=== PATIENT | male | born 1980 | race Caucasian/White ===

== ENCOUNTER 2016-09-18 10:24 | Emergency (ER) | payer OTHER | END 2016-09-18 11:45 | disposition home or self-care (01) | LOC: ER1 10:24 | DX: T22.211A Burn of second degree of right forearm, initial encounter (principal); I10 Essential (primary) hypertension; M54.9 Dorsalgia, unspecified; G89.29 Other chronic pain; Z88.5 Allergy status to narcotic agent; Z88.6 Allergy status to analgesic agent; Z79.899 Other long term (current) drug therapy; F17.210 Nicotine dependence, cigarettes, uncomplicated; X19.XXXA Contact with other heat and hot substances, initial encounter; Y92.009 Unspecified place in unspecified non-institutional (private) residence as the place of occurrence of the external cause | CPT/HCPCS: 99283 ==

== ENCOUNTER 2016-10-06 11:25 | Emergency (ER) | payer OTHER | END 2016-10-06 15:34 | disposition home or self-care (01) | LOC: ER1 11:25 | DX: S20.211A Contusion of right front wall of thorax, initial encounter (principal); F17.200 Nicotine dependence, unspecified, uncomplicated; W01.0XXA Fall on same level from slipping, tripping and stumbling without subsequent striking against object, initial encounter; Y92.009 Unspecified place in unspecified non-institutional (private) residence as the place of occurrence of the external cause | CPT/HCPCS: 71101; 99284 ==

== ENCOUNTER 2017-03-16 10:17 | Emergency (ER) | payer OTHER ==
[2017-03-16 11:44] LABS: HEMOGLOBIN 13.8 gm/dl (14.0-17.5); RED BLOOD COUNT 4.45 M/UL (4.20-5.50); WHITE BLOOD COUNT 7.9 K/UL (4.5-11.0)
[2017-03-16 12:10] LABS: BUN/CREATININE RATIO 18 (0-10)
== END 2017-03-16 13:25 | disposition home or self-care (01) ==
LOC: ER1 10:17
PROVIDERS: Physician Assistant
DX: R55 Syncope and collapse (principal); S01.81XA Laceration without foreign body of other part of head, initial encounter; F17.210 Nicotine dependence, cigarettes, uncomplicated; W19.XXXA Unspecified fall, initial encounter
CPT/HCPCS: 12011; 36415; 70450; 71010; 80053; 82550; 82553; 83874; 84484; 85025; 93005; 99284

== ENCOUNTER 2021-03-11 08:50 | Emergency (ER) | payer OTHER ==
[~2021-03-11 08:50] MED LIST: ACID REDUCER20 MG PO; ARTHRITIS PAI42.5 GM TP; AUGMENTIN 875-1 EACH PO; BACTROBAN OINT22 GM EXT; DOCUSATE SODIU1 EACH PO; ELAVIL 25 MG TA25 MG PO; GABAPENTIN600 MG PO; HYDRALAZINE HCL25 MG PO; KEFLEX CAP 500500 MG PO; KEPPRA500 MG PO; MIRALAX17 GM PO; NEOSPORIN ANT14.2 GM TP; NORCO 5-325 TA1 EACH PO; NORVASC10 MG PO; PERCOCET 10-321 EACH PO; SILVADENE CREAM20 GM TOP; TYLENOL 325MG325 MG PO; VOLTAREN EC 5050 MG PO; ZOFRAN ODT 4 MG4 MG SL
[2021-03-11 09:29] LABS: HEMOGLOBIN 12.6 gm/dl (14.0-17.5); RED BLOOD COUNT 4.29 M/UL (4.20-5.50); WHITE BLOOD COUNT 7.1 K/UL (4.5-11.0)
[2021-03-11 09:51] LABS: BUN/CREATININE RATIO 21 (0-10)
== END 2021-03-13 11:35 ==
LOC: ER1 08:50
PROVIDERS: Student in an Organized Health Care Education/Training Program
DX: S61.512A Laceration without foreign body of left wrist, initial encounter (principal); F32.9 Major depressive disorder, single episode, unspecified; X78.8XXA Intentional self-harm by other sharp object, initial encounter; Z20.822 Contact with and (suspected) exposure to COVID-19; F17.210 Nicotine dependence, cigarettes, uncomplicated
CPT/HCPCS: 73100; 80053; 80307; 81001; 83735; 85025; 99285; G0480; U0002

== ENCOUNTER 2021-06-22 15:55 | Emergency (ER) | payer OTHER | END 2021-06-22 17:10 | disposition home or self-care (01) | LOC: ER1 15:55 | DX: S61.412A Laceration without foreign body of left hand, initial encounter (principal); I10 Essential (primary) hypertension; F17.200 Nicotine dependence, unspecified, uncomplicated; Z88.6 Allergy status to analgesic agent; Z88.5 Allergy status to narcotic agent; W26.8XXA Contact with other sharp object(s), not elsewhere classified, initial encounter | CPT/HCPCS: 12002; 99282 ==

== ENCOUNTER 2022-01-29 10:22 | Emergency (ER) | payer OTHER | END 2022-01-29 10:41 | disposition left against medical advice (07) | LOC: ER1 10:22 | DX: S01.81XA Laceration without foreign body of other part of head, initial encounter (principal); Y04.0XXA Assault by unarmed brawl or fight, initial encounter | CPT/HCPCS: 99281 ==

== ENCOUNTER 2022-03-23 10:53 | Inpatient (IN) | payer OTHER ==
[~2022-03-23] VITALS: Ht 177.8 cm; Wt 70.3 kg
[~2022-03-23 10:53] MED LIST changes: -GABAPENTIN600 MG PO; +GABAPENTIN800 MG PO
[2022-03-23 12:47] LABS: HEMOGLOBIN 16.8 gm/dl (14.0-17.5); RED BLOOD COUNT 5.42 M/UL (4.20-5.50); WHITE BLOOD COUNT 11.7 K/UL (4.5-11.0)
[2022-03-23 13:29] LABS: ADENOVIRUS F 40/41 Not Detected (Negative); ASTROVIRUS Not Detected (Negative); CAMPYLOBACTER Not Detected (Negative); CRYPTOSPORIDIUM Not Detected (Negative); E.COLI 0157 Not Detected (Negative); ENTAMOEBA HISTOLYTICA Not Detected (Negative); ENTEROAGGREGATIVE E.COLI (EAEC Not Detected (Negative); ENTEROPATHOGENIC E.COLI (EPEC) Not Detected (Negative); ENTEROTOXIGENIC E.COLI (ETEC) Not Detected (Negative); GIARDIA LAMBLIA Not Detected (Negative); NOROVIRUS GI/GII Not Detected (Negative); PLESIOMONAS SHIGELLOIDES Not Detected (Negative); ROTOVIRUS A Not Detected (Negative); SALMONELLA Not Detected (Negative); SAPOVIRUS Not Detected (Negative); SHIG/ENTEROINVAS.ECOLI (EIEC) Not Detected (Negative); SHIGA-LIK TOX.PRO.E.COLI (STEC Not Detected (Negative); VIBRIO Not Detected (Negative); VIBRIO CHOLERAE Not Detected (Negative); YERSINIA ENTEROCOLITICA Not Detected (Negative)
[2022-03-23 15:14] LABS: CLOSTRIDIUM DIFFICILE TOX A/B Not Detected (Negative)
[2022-03-23] MEDS ORDERED: PREGABALIN150 MG PO (17:32)
[2022-03-23] MEDS ORDERED: CITALOPRAM HBR20 MG PO (17:34)
[2022-03-23] MEDS ORDERED: AMMONIUM LACTA140 GM TOP (17:34)
[2022-03-23] MEDS ORDERED: ATORVASTATIN CA20 MG PO (17:35)
[2022-03-24 01:35] LABS: HEMOGLOBIN 12.1 gm/dl (14.0-17.5); RED BLOOD COUNT 4.01 M/UL (4.20-5.50); WHITE BLOOD COUNT 8.5 K/UL (4.5-11.0)
[2022-03-24 02:46] LABS: BUN/CREATININE RATIO 19 (0-10)
[2022-03-25 02:33] LABS: HEMOGLOBIN 11.8 gm/dl (14.0-17.5); RED BLOOD COUNT 3.91 M/UL (4.20-5.50)
[2022-03-25 02:36] LABS: WHITE BLOOD COUNT 6.2 K/UL (4.5-11.0)
[2022-03-25 04:07] LABS: BUN/CREATININE RATIO 16 (0-10)
[2022-03-25 09:09] LABS: HBSAG SCREEN Negative (Negative); HCV AB <0.1 (0.0-0.9); HEP A AB, IGM Negative (Negative); HEP B CORE AB, IGM Positive (Negative)
[2022-03-26 03:48] LABS: BUN/CREATININE RATIO 13 (0-10)
[2022-03-26] MEDS ORDERED: NORVASC5 MG PO (12:33)
== END 2022-03-26 13:30 | disposition home or self-care (01) | DRG 683 ==
LOC: ER1 10:53 → CDU 15:25 → M/S 15:25
PROVIDERS: Physician Assistant; ADMIT Internal Medicine
PROC: B24BZZZ Ultrasonography of Heart with Aorta (ICD-10-PCS; principal; 2022-03-24)
DX: N17.9 Acute kidney failure, unspecified (principal); B19.10 Unspecified viral hepatitis B without hepatic coma; M62.82 Rhabdomyolysis; R07.89 Other chest pain; R74.01 Elevation of levels of liver transaminase levels; F15.10 Other stimulant abuse, uncomplicated; F17.210 Nicotine dependence, cigarettes, uncomplicated; I10 Essential (primary) hypertension; I08.1 Rheumatic disorders of both mitral and tricuspid valves; F31.9 Bipolar disorder, unspecified; F10.10 Alcohol abuse, uncomplicated; Z90.49 Acquired absence of other specified parts of digestive tract; Z98.890 Other specified postprocedural states; Z88.8 Allergy status to other drugs, medicaments and biological substances; Z88.6 Allergy status to analgesic agent; I25.2 Old myocardial infarction
CPT/HCPCS: ECHO; 36415; 71045; 80053; 80074; 80307; 81001; 82272; 82550; 82553; 83690; 83735; 83874; 84484; 85025; 87507; 93005; 93306; 96360; 99285; U0002